=== PATIENT | female | born 1940 | race Caucasian/White ===

== ENCOUNTER → 2016-10-04 11:14 | Outpatient (CLI) | payer MEDICARE ==
[2016-02-16 11:01] VITALS: BMI 21.8
[~2016-10-04 11:14] MED LIST: CALCIUM 600+D T1 TA1 PO; FIBER-TABS625 MG PO; HYDROCODONE-APA1 TAB PO; MULTIPLE VITAMI1 TA1 PO; PERCOCET 10/3251 TA1 PO; PREMARIN45 GM VG; VITAMIN B-12250 MC3 PO
== END | disposition home or self-care (01) ==
LOC: D.MRI 11:14
DX: S89.92XA Unspecified injury of left lower leg, initial encounter (principal)

== ENCOUNTER 2016-10-18 07:06 | Day surgery (SDC) | payer MEDICARE ==
[2016-10-16 12:00] LABS: BASOPHILS 0.6 % (0.0-2.0); EOSINOPHILS 1.9 % (0-7); HEMATOCRIT 41.3 % (36.0-48.0); HEMOGLOBIN 13.8 g/dL (12-16); LYMPHOCYTES 43.3 % (15-50); MCH 32.3 pg (26.0-34.0); MCHC 33.4 g/dL (31.0-37.0); MCV 96.7 fL (80.0-100.0); MEAN PLATELET VOLUME 9.3 fL (7.4-10.4); MONOCYTES 5.9 % (2-11); NEUTROPHILS 48.3 % (40-80); PLATELET COUNT 252 10x3/uL (130-400); RBC 4.27 10x6/uL (4.00-5.40); RDW 12.7 % (11.5-14.5); WBC 5.3 10x3/uL (4.8-10.8)
[2016-10-16 12:22] LABS: PROTIME 13.1 SECONDS (11.6-15.0)
[~2016-10-18 07:06] MED LIST changes: -HYDROCODONE-APA1 TAB PO
[2016-10-18 10:24] VITALS: BP 155/72; BMI 22.7
--- NOTE | 2016-10-18 12:36 | NUR ---
1215-IV DISLODGED WHILE IN BATHROOM, RESITED TO LEFT HAND X 1 22 GAUGE.
[2016-10-18] MEDS ORDERED: HYDROCODONE-APA1 TAB PO (15:05)
--- NOTE | 2016-10-18 17:06 | NUR ---
1615 IV DC WITH CATHER TIP INTACT
--- NOTE | 2016-10-22 11:59 | OP ---
PATIENT NAME: GAEL MEEHAN MEDICAL RECORD: [id number] :40 LOCATION:[facility] ADMISSION DATE: SURGEON: SHIRLEY PAZ MD DATE OF OPERATION: 10/18/2016 PREOPERATIVE DIAGNOSIS: Lateral meniscus tear of the left knee. POSTOPERATIVE DIAGNOSIS: Lateral meniscus tear of the left knee. PROCEDURE: Arthroscopic partial meniscectomy of the left knee. SURGEON: Shirley Paz MD. ANESTHESIA: General. INTRAOPERATIVE COMPLICATIONS: None. SUMMARY OF PATHOLOGIC FINDINGS: The patient had complex tear of the posterior horn of the medial meniscus. Intraoperative findings consistent with the MRI, the patient had a complex tear of the posterior horn of medial meniscus. OPERATIVE SUMMARY IN DETAIL: Arthroscopy was established. Diagnostic arthroscopy revealed the above findings. Arthroscopic resector was utilized to debride the posterior horn of the medial meniscus in conjunction with meniscotomes until the medial meniscus back to stable meniscal elements. No significant arthritis was seen in any of the compartment. At this point, the knee was insufflated with 30 cc of 0.25% Marcaine with epinephrine and 40 mg of Depo-Medrol. Arthroscopy portals were closed in routine interrupted fashion using 4-0 Prolene. Sterile dressings were applied. The patient was awakened, taken in stable condition. All final needle and sponge counts were correct. 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
== END 2016-10-18 16:30 | disposition home or self-care (01) ==
LOC: D.OPS 07:06
PROVIDERS: Anesthesiology
DX: S83.282A Other tear of lateral meniscus, current injury, left knee, initial encounter (principal); K21.9 Gastro-esophageal reflux disease without esophagitis; M25.561 Pain in right knee